=== PATIENT | female | born 1980 | race Caucasian/White ===

== ENCOUNTER → 2018-08-20 | Outpatient (CLI) | payer OTHER | LOC: FIMAGING 12:00 | PROVIDERS: ATTEND Otolaryngology | DX: J32.0 Chronic maxillary sinusitis (principal) ==

== ENCOUNTER 2018-12-03 12:15 | Emergency (ER) | payer BC ==
--- NOTE | 2018-12-03 12:38 | EDPHY ---
HPI/HX/ROS/PE/MDM Narrative: CHIEF COMPLAINT: Headaches following ESS HPI: This patient is a 38 y/o female who is 16 days s/p endoscopic sinus surgery with Dr. Neal, life teacher, for chronic sinusitis. Throughout the first week of her recovery, she had occipital headaches/neck pain. These resolved briefly after her sinus splints were removed, but returned two days later. With quick movements, she develops sharp pain in the frontal skull region or behind her eyes. She feels "hot inside her head". She endorses photophobia. She has felt she needs to lie down multiple times per day. No visual changes, numbness or weakness in her extremities. She has taken ibuprofen and Tylenol for relief. Flexible scope to examine the sinuses today in the office with Dr. Neal was unremarkable. Dr. Neal subsequently referred the patient here to the ED for further evaluation. She denies chest pain, shortness of breath, abdominal pain, vomiting, diarrhea, or other associated symptoms. REVIEW OF SYSTEMS: A comprehensive 10 system review of systems is otherwise negative aside from elements mentioned in the history of present illness and medical decision making. PMH: Endoscopic sinus surgery. SOCIAL HISTORY: . Lives in [place]. PHYSICAL EXAM: General:Patient is alert, in no acute distress. ENT:Eyes are normal to inspection. ENT inspection normal. Neck: Normal inspection. Full range of motion. Respiratory:No respiratory distress. Breath sounds normal bilaterally. Cardiovascular: Regular rate and rhythm. Strong peripheral pulses. Normal cap refill. Abdomen:The abdomen is nontender to palpation. There are no peritoneal signs. There are normal bowel sounds. Back: Normal to inspection. No tenderness to palpation. Skin: Normal color. No rash. Warm and dry. Extremities: Normal appearance. Full range of motion. Neuro: Oriented x3. Normal motor function. Normal sensory function. ED Course: 38 y/o female presents with headaches ongoing since her recent sinus surgery on 11/17/18. Plan for MRI. Plan to administer migraine cocktail for symptom relief. 14:30 Patient is feeling much better following Reglan, Benadryl, and Toradol - the best she has felt in several months. She is on her way to MRI now. 15:[address] Blanc, life teacher, the patient's surgeon. MRI results pending. She would like patient to be discharged home with a 10-day course of Augmentin and will follow closely. - Data Points Laboratory Results: Laboratory Results 12/03/18 12:50 12/03/18 12:50 12/03/18 12/03/18 12:50 12:50 WBC 8.80 10^3/uL 10^3/uL (3.80-9.50) RBC 4.19 10^6/uL 10^6/uL (4.18-5.33) Hgb 13.3 g/dL g/dL (12.6-16.3) Hct 39.0 % % (38.0-47.0) MCV 93.1 fL fL (81.5-99.8) MCH 31.7 pg pg (27.9-34.1) MCHC 34.1 g/dL g/dL (32.4-36.7) RDW 12.1 % % (11.5-15.2) Plt Count 296 10^3/uL 10^3/uL (150-400) MPV 9.4 fL fL (8.7-11.7) Neut % (Auto) 62.1 % % (39.3-74.2) Lymph % (Auto) 28.6 % % (15.0-45.0) [place] % (Auto) 5.9 % % (4.5-13.0) Eos % (Auto) 2.5 % % (0.6-7.6) Baso % (Auto) 0.6 % % (0.3-1.7) Nucleat RBC Rel Count 0.0 % % (0.0-0.2) Absolute Neuts (auto) 5.46 10^3/uL 10^3/uL (1.70-6.50) Absolute Lymphs (auto) 2.52 10^3/uL 10^3/uL (1.00-3.00) Absolute Monos (auto) 0.52 10^3/uL 10^3/uL (0.30-0.80) Absolute Eos (auto) 0.22 10^3/uL 10^3/uL (0.03-0.40) Absolute Basos (auto) 0.05 10^3/uL 10^3/uL (0.02-0.10) Absolute Nucleated RBC 0.00 10^3/uL 10^3/uL (0-0.01) Immature Gran % 0.3 % % (0.0-1.1) Immature Gran # 0.03 10^3/uL 10^3/uL (0.00-0.10) Sodium 138 mEq/L mEq/L (135-145) Potassium 3.9 mEq/L mEq/L (3.5-5.2) Chloride 102 mEq/L mEq/L (97-110) Carbon Dioxide 25 mEq/l mEq/l (22-31) Anion Gap 11 mEq/L mEq/L (6-14) BUN 15 mg/dL mg/dL (7-23) Creatinine 0.8 mg/dL mg/dL (0.6-1.0) Estimated GFR > 60 Glucose 101 mg/dL H mg/dL (70-100) Calcium 9.6 mg/dL mg/dL (8.5-10.4) Medications Given: Discontinued Medications Diphenhydramine HCl (Benadryl Injection) 25 mg IVP EDNOW ONE Stop: 12/03/18 12:43 Last Admin: 12/03/18 12:55 Dose: 25 mg Sodium Chloride (Ns) 1,000 mls @ 0 mls/hr IV ONCE ONE; Wide Open PRN Reason: Protocol Stop: 12/03/18 12:43 Last Admin: 12/03/18 12:54 Dose: 1,000 mls Ketorolac Tromethamine (Toradol) 30 mg IVP EDNOW ONE Stop: 12/03/18 12:43 Last Admin: 12/03/18 12:54 Dose: 30 mg Metoclopramide HCl (Reglan Injection) 10 mg IVP EDNOW ONE Stop: 12/03/18 12:43 Last Admin: 12/03/18 12:54 Dose: 10 mg General Time Seen by Provider: 12/03/18 12:25 Initial Vital Signs: Initial Vital Signs Temperature (C) 36.8 C 12/03/18 12:19 Heart Rate 74 12/03/18 12:19 Respiratory Rate 16 12/03/18 12:19 Blood Pressure 121/76 H 12/03/18 12:19 O2 Sat (%) 96 12/03/18 12:19 O2 Delivery Mode Room Air Allergies/Adverse Reactions: levofloxacin [From Levaquin] Allergy (Verified 12/03/18 12:19) Home Medications: Medication Instructions Recorded NO HOME MEDS 11/23/09 Advil 12/03/18 Amoxicillin/Clavulanate Pot 875 mg PO BID #20 tab 12/03/18 [Augmentin 875Mg] Budesonide 12/03/18 Tylenol 12/03/18 Departure - Departure Clinical Impression: Headache Condition: Good Instructions: Migraine Headache (ED) Additional Instructions: Follow-up with your primary care physician/ENT within 72 hours. Return to the emergency department immediately for recurrence of headache, nausea, vomiting, numbness, weakness, neck pain, fever or other concerns. Use Tylenol and/or ibuprofen as directed. Referrals: Elsie Khan PA [Primary Care Provider] - As per Instructions Prescriptions: Amoxicillin/Clavulanate Pot [Augmentin 875Mg] 875 mg PO BID #20 tab Report Scribed for: Yaw Gardiner Report Scribed by: La Young Date of Report: 12/03/18 Time of Report: 12:42 Physician Review and Approval Statement: Portions of this note were transcribed by an ED scribe. I personally performed the history, physical exam, and medical decision making; and confirm the accuracy of the information in the transcribed note.
[2018-12-03] MEDS ORDERED: KETOROLAC 30 MG/1 ML SDV IVP ONE (12:42)
[2018-12-03] MEDS ORDERED: METOCLOPRAMIDE 10 MG/2 ML VIAL IVP ONE (12:42)
[2018-12-03] MEDS ORDERED: NS 1,000 ML IV ONE (12:42)
[2018-12-03 13:10] LABS: PLATELET COUNT 296 10^3/uL (150-400)
[2018-12-03] MEDS ORDERED: GADOBUTROL 10 ML VIAL IVP ONE (14:31)
[2018-12-03 15:51] VITALS: BP 118/72
== END 2018-12-03 15:50 | disposition home or self-care (01) ==
DX: R51 Headache (principal); E86.9 Volume depletion, unspecified
CPT/HCPCS: 96374; A9585; J1200; J1885; J2765